=== PATIENT | male | born 1955 | race Caucasian/White ===

== ENCOUNTER 2017-12-29 11:49 | Inpatient (IN) | payer OTHER ==
[~2017-12-29] VITALS: Ht 177.8 cm; Wt 97.9 kg
[2017-12-29] MEDS ORDERED: SODIUM CHLORIDE 0.9% 1,000 ML IV ONE (12:05)
[2017-12-29] MEDS ORDERED: SODIUM CHLORIDE 0.9% 1,000ML IVBOLUS ONE (12:30)
[2017-12-29] MEDS ORDERED: PLEASE ENTER HEIGHT AND WEIGHT MC SCH (12:30)
[2017-12-29] MEDS ORDERED: SODIUM CHLORIDE FLUSH 10ML SYR IVF ONE (12:30)
[2017-12-29 12:31] LABS: MEAN CORPUSCULAR HEMOGLOBIN 23.2 pg (27.5-34.5); MEAN CORPUSCULAR HGB CONC 32.2 g/dL (33.2-36.2); MEAN CORPUSCULAR VOLUME 72.1 fL (81-97); MEAN PLATELET VOLUME 9.1 fL (7.4-10.4); PLATELET COUNT 457 x10^3/uL (130-400); RED BLOOD COUNT 6.67 x10^6/uL (4.38-5.82); RED CELL DISTRIBUTION WIDTH 19.5 % (9.4-14.8)
[2017-12-29 12:41] LABS: INTERNATIONAL NORMALIZED RATIO 1.07 (0.93-1.1)
[2017-12-29 12:42] LABS: ALANINE AMINOTRANSFERASE 58 U/L (12-78); ANION GAP 15 mmol/L (5-15); CALCIUM 9.7 mg/dL (8.5-10.1); CHLORIDE 97 mmol/L (98-107); CREATININE 1.39 mg/dL (0.7-1.3)
[2017-12-29 12:45] LABS: ALKALINE PHOSPHATASE 74 U/L (45-117); BILIRUBIN,TOTAL 2.8 mg/dL (0.2-1.0); TOTAL PROTEIN 9.1 g/dL (6.4-8.2)
[2017-12-29 12:48] LABS: BASOPHILS # (AUTO) 0.03 x10^3/uL (0-0.1); BASOPHILS % (AUTO) 0 % (0-1); EOSINOPHILS # (AUTO) 0.03 x10^3/uL (0-0.4); EOSINOPHILS % (AUTO) 0 % (1-7); LYMPHOCYTES # (AUTO) 1.21 x10^3/uL (1-3.4); LYMPHOCYTES % (AUTO) 5 % (22-44); MD SCAN; MONOCYTES # (AUTO) 2.51 x10^3/uL (0.2-0.8); MONOCYTES % (AUTO) 11 % (2-9); NEUTROPHILS # (AUTO) 18.49 x10^3/uL (1.8-6.8); NEUTROPHILS % (AUTO) 83 % (42-75)
[2017-12-29] MEDS ORDERED: methylPREDNISolone SOD SUCC 125 MG/2 ML ONE (12:55)
[2017-12-29] MEDS ORDERED: DIPHENHYDRAMINE 50 MG/ML, 1ML ONE (12:55)
[2017-12-29 12:57] LABS: CULTURE INDICATED? YES; MICROSCOPIC INDICATED
[2017-12-29] MEDS ORDERED: methylPREDNISolone SOD SUCC 125 MG/2 ML IVPush ONE (13:00)
[2017-12-29] MEDS ORDERED: DIPHENHYDRAMINE 50 MG/ML, 1ML IVPush ONE (13:00)
[2017-12-29] MEDS ORDERED: OMNIPAQUE 350 MG/ML, 100ML BOTTLE ONE (13:28)
[2017-12-29] MEDS ORDERED: CEFTRIAXONE PMX 1GM/50ML 50 ML IVPB ONE (13:30)
[2017-12-29] MEDS ORDERED: POTASSIUM CHLORIDE 20 MEQ TAB.ER.PRT PO ONE (13:30)
[2017-12-29] MEDS ORDERED: POTASSIUM CHLORIDE 20 MEQ TAB.ER.PRT ONE (13:31)
[2017-12-29] MEDS ORDERED: CEFTRIAXONE PMX 1GM/50ML 50 ML ONE ×2 (13:31→14:26)
[2017-12-29] MEDS ORDERED: CEFTRIAXONE PMX 1GM/50ML 50 ML IV ONE (14:00)
[2017-12-29] MEDS ORDERED: LABETALOL 5MG/ML, 20ML IVPush PRN (14:30)
[2017-12-29] MEDS ORDERED: ONDANSETRON 2MG/ML, 2ML IVPush PRN (14:30)
[2017-12-29] MEDS ORDERED: POLYETHYLENE GLYCOL 17 GM PACKET PO PRN (14:30)
[2017-12-29] MEDS ORDERED: DOCUSATE 100 MG CAPSULE PO PRN (14:30)
[2017-12-29] MEDS ORDERED: morphine SULFATE 10 MG/ML, 1ML IVPush PRN (14:30)
[2017-12-29] MEDS ORDERED: HYDROcodone/APAP 5/325 TABLET PO PRN (14:30)
[2017-12-29] MEDS ORDERED: PROMETHAZINE 25 MG/ML, 1ML IM PRN (14:30)
[2017-12-29] MEDS ORDERED: ONDANSETRON ODT 4 MG PO PRN (14:30)
[2017-12-29] MEDS ORDERED: GABAPENTIN 300 MG CAPSULE PO PRN (14:30)
[2017-12-29] MEDS ORDERED: hydrALAzine 20 MG/ML, 1ML IVPush PRN (14:30)
[2017-12-29] MEDS ORDERED: BISACODYL 10 MG SUPP PR PRN (14:30)
[2017-12-29] MEDS: DOXYCYCLINE 100 MG in DEXTROSE 5% 250 ML IV SCH (14:52)
[2017-12-29 14:55] LABS: FREE T4 (FREE THYROXINE) 1.59 ng/dL (0.76-1.46); THYROID STIMULATING HORMONE 0.493 mIU/L (0.358-3.740)
[2017-12-29 15:07] VITALS: BP 138/84
[2017-12-29] MEDS ORDERED: HYDR12.53 PO (15:22)
[2017-12-29] MEDS ORDERED: MULT-6 PO (15:22)
[2017-12-29] MEDS ORDERED: GABA800T2 PO (15:22)
[2017-12-29 15:50] LABS: HEMOGLOBIN A1C 6.1 % (4.2-6.3)
[2017-12-29] MEDS: HEPARIN 5,000 UNITS/ML, 1ML SQ SCH (16:10)
[2017-12-29] MEDS: TAMSULOSIN 0.4 MG CAP.ER.24H PO SCH (16:10)
[2017-12-29] MEDS: SODIUM CHLORIDE 0.9% 1,000 ML IV SCH (16:59)
[2017-12-29 19:30] VITALS: BP 131/80
[2017-12-30] MEDS: SODIUM CHLORIDE 0.9% 1,000 ML IV SCH (00:57)
[2017-12-30] MEDS: HEPARIN 5,000 UNITS/ML, 1ML SQ SCH ×3 (00:57→17:11)
[2017-12-30 01:20] VITALS: BP 127/74
[2017-12-30] MEDS: DOXYCYCLINE 100 MG in DEXTROSE 5% 250 ML IV SCH ×2 (03:11→15:21)
[2017-12-30 05:04] LABS: BASOPHILS # (AUTO) 0.01 x10^3/uL (0-0.1); BASOPHILS % (AUTO) 0 % (0-1); EOSINOPHILS % (AUTO) 0 % (1-7); LYMPHOCYTES # (AUTO) 1.19 x10^3/uL (1-3.4); LYMPHOCYTES % (AUTO) 10 % (22-44); MD NO; MEAN CORPUSCULAR HEMOGLOBIN 23.7 pg (27.5-34.5); MEAN CORPUSCULAR HGB CONC 32.4 g/dL (33.2-36.2); MEAN CORPUSCULAR VOLUME 73.1 fL (81-97); MEAN PLATELET VOLUME 8.7 fL (7.4-10.4); MONOCYTES # (AUTO) 1.37 x10^3/uL (0.2-0.8); MONOCYTES % (AUTO) 12 % (2-9); NEUTROPHILS # (AUTO) 9.17 x10^3/uL (1.8-6.8); NEUTROPHILS % (AUTO) 78 % (42-75); PLATELET COUNT 283 x10^3/uL (130-400); RED BLOOD COUNT 4.74 x10^6/uL (4.38-5.82); RED CELL DISTRIBUTION WIDTH 19.5 % (9.4-14.8)
[2017-12-30 05:14] LABS: CHLORIDE 107 mmol/L (98-107)
[2017-12-30 05:27] LABS: ALANINE AMINOTRANSFERASE 40 U/L (12-78); ALBUMIN 2.6 g/dL (3.4-5.0); ALKALINE PHOSPHATASE 50 U/L (45-117); ANION GAP 10 mmol/L (5-15); BILIRUBIN,TOTAL 0.7 mg/dL (0.2-1.0); CALCIUM 8.1 mg/dL (8.5-10.1); CHOL/HDL RATIO 4.5; CHOLESTEROL, TOTAL 136 mg/dL (140-239); CREATININE 0.84 mg/dL (0.7-1.3); HDL CHOL % 22 % (26-37); HDL CHOLESTEROL (DIRECT) 30 mg/dL (40-60); LDL CHOLESTEROL,CALCULATED 92 mg/dL (54-169); LDL/HDL RATIO 3.1 (0.5-3.0); TOTAL PROTEIN 5.9 g/dL (6.4-8.2); TRIGLYCERIDES 71 mg/dL (50-200); VLDL CHOLESTEROL 14 mg/dL (0-25)
[2017-12-30 06:09] VITALS: BP 117/67
[2017-12-30] MEDS ORDERED: POTASSIUM CHLORIDE 40 MEQ in SODIUM CHLORIDE 0.9% 500 ML IV ONE (08:30)
[2017-12-30] MEDS: FINASTERIDE 5 MG TABLET PO SCH (08:45)
[2017-12-30] MEDS: TAMSULOSIN 0.4 MG CAP.ER.24H PO SCH (08:45)
[2017-12-30 12:27] VITALS: BP 131/79
[2017-12-30] MEDS: CEFTRIAXONE PMX 2GM/50ML 50 ML IV SCH (13:03)
[2017-12-30 18:45] VITALS: BP 142/72
[2017-12-31] MEDS: HEPARIN 5,000 UNITS/ML, 1ML SQ SCH ×2 (01:41→09:53)
[2017-12-31 02:16] VITALS: BP 111/63
[2017-12-31] MEDS: DOXYCYCLINE 100 MG in DEXTROSE 5% 250 ML IV SCH ×2 (03:08→15:00)
[2017-12-31 07:03] VITALS: BP 119/75
[2017-12-31] MEDS: TAMSULOSIN 0.4 MG CAP.ER.24H PO SCH (09:52)
[2017-12-31] MEDS: FINASTERIDE 5 MG TABLET PO SCH (09:52)
[2017-12-31 12:52] VITALS: BP 130/66
[2017-12-31] MEDS: CEFTRIAXONE PMX 2GM/50ML 50 ML IV SCH (13:20)
[2017-12-31] MEDS ORDERED: TAMS-11 PO (14:21)
[2017-12-31] MEDS ORDERED: CEFD300C37 PO (14:21)
[2017-12-31] MEDS ORDERED: DOXY100T PO (14:21)
[2017-12-31] MEDS ORDERED: FINA5TAB4 PO (14:21)
== END 2017-12-31 15:15 | disposition home health service (06) | DRG 871 ==
LOC: EDBD 11:49 → ED 13:05 → EDIP 14:06 → 3NE 14:37
PROVIDERS: ADMIT Internal Medicine; ATTEND Internal Medicine
PROC: 0T9B70Z Drainage of Bladder with Drainage Device, Via Natural or Artificial Opening (ICD-10-PCS; principal; 2017-12-29)
DX: A41.9 Sepsis, unspecified organism (principal); J15.9 Unspecified bacterial pneumonia; E87.2 Acidosis; N17.9 Acute kidney failure, unspecified; N39.0 Urinary tract infection, site not specified; N40.1 Benign prostatic hyperplasia with lower urinary tract symptoms; E86.0 Dehydration; E87.6 Hypokalemia; I10 Essential (primary) hypertension; R33.8 Other retention of urine; M43.16 Spondylolisthesis, lumbar region; K76.89 Other specified diseases of liver; K59.00 Constipation, unspecified; R32 Unspecified urinary incontinence; M47.816 Spondylosis without myelopathy or radiculopathy, lumbar region; Z91.041 Radiographic dye allergy status; Z79.899 Other long term (current) drug therapy; Z88.8 Allergy status to other drugs, medicaments and biological substances
CPT/HCPCS: 36415; 51702; 71045; 74177; 80053; 80061; 81001; 82306; 82607; 83036; 83605; 83735; 84439; 84443; 85025; 85610; 85730; 87040; 87086; 93005; 96361; 96365; 96375; G0378; J0696; J1644; J3480; J7060; Q9967; J1200; J2930; J7030; J7040